=== PATIENT | male | born 1945 | race Caucasian/White ===

== ENCOUNTER 2023-07-29 18:05 | Emergency (ER) | payer MEDICARE, OTHER ==
[~2023-07-29] VITALS: Ht 172.7 cm; Wt 95.3 kg
[~2023-07-29 18:05] MED LIST: ALLOPURINOL; DIGOXIN; HCTZ; METOPROLOL; WARF1TAB2
[2023-07-29 18:38] LABS: BASOPHILS # (AUTO) 0.2 K/UL (0.0-0.2); BASOPHILS % (AUTO) 3.5 % (0.0-2.0); EOSINOPHILS # (AUTO) 0.2 K/uL (0.0-0.7); EOSINOPHILS % (AUTO) 2.3 % (0.0-7.0); HEMOGLOBIN 13.2 g/dL (12.5-16.3); LYMPHOCYTES # (AUTO) 0.6 K/uL (0.8-4.8); LYMPHOCYTES % (AUTO) 9.2 % (20.5-51.5); MEAN CORPUSCULAR HEMOGLOBIN 28.3 uug (23.8-33.4); MEAN CORPUSCULAR HGB CONC 31 g/dL (32.5-36.3); MEAN CORPUSCULAR VOLUME 90.3 fL (73.0-96.2); MONOCYTES # (AUTO) 0.6 K/uL (0.1-1.30); MONOCYTES % (AUTO) 8.6 % (0.0-11.0); NEUTROPHILS # (AUTO) 5.4 K/uL (1.8-8.9); NEUTROPHILS % (AUTO) 76.4 % (38.5-71.5); PLATELET COUNT (AUTO) 101 K/uL (152-348); RED BLOOD CELL COUNT(AUTO) 4.66 MIL/uL (4.06-5.63); RED CELL DISTRIBUTION WIDTH 18.1 % (12.1-16.2)
[2023-07-29 18:40] LABS: DIFFERENTIAL COMMENT 1
[2023-07-29 19:01] LABS: ALANINE AMINOTRANSFERASE 15 U/L (16-63); ALBUMIN 3.2 g/dL (3.4-5.0); ALKALINE PHOSPHATASE 99 U/L (50-136); ASPARTATE AMINOTRANSFERASE 11 U/L (15-37); BILIRUBIN,DIRECT 0.3 mg/dL (0.0-0.2); BILIRUBIN,TOTAL 0.7 mg/dL (0.2-1.0); CALCIUM 10.1 mg/dL (8.5-10.1); CARBON DIOXIDE 33 mmol/L (21-32); CHLORIDE 100 mmol/L (98-107); CREATININE 1.3 mg/dL (0.6-1.3); GLUCOSE 127 mg/dL (74-106); POTASSIUM 3.7 mmol/L (3.5-5.1); SODIUM SERUM 141 mmol/L (136-145); TOTAL PROTEIN, SERUM 7.9 g/dL (6.4-8.2); UREA NITROGEN, BLOOD 16 mg/dL (7-18)
[2023-07-29] MEDS ORDERED: CEFTRIAXONE 1 G in IV DEXTROSE 5% 50 ML IV ONE (22:00)
[2023-07-29] MEDS ORDERED: METRONIDAZOLE 500 MG/NS 100 ML PIGGYBACK IV ONE (22:00)
[2023-07-29] MEDS ORDERED: METRONIDAZOLE 500 MG/NS 100ML 100 ML IV ONE (22:12)
[2023-07-29] MEDS ORDERED: CEFTRIAXONE /D5W 50ML IVPB **ER PYXIS IV ONE (22:12)
[2023-07-29] MEDS ORDERED: ACETAMINOPHEN 325 MG TABLET PO ONE (23:00)
[2023-07-29 23:04] LABS: *BILIRUBIN,URIN NEGATIVE (NEGATIVE); *COLOR,URINE YELLOW (YELLOW); *KETONES,URINE NEGATIVE (NEGATIVE); *PROTEIN,URINE NEGATIVE (NEGATIVE); *UROBILINOGEN,URINE 0.2 E.U./dl (NORMAL); LEUKOCYTE ESTERASE ,URINE 1+ (NEGATIVE); NITRITE, URINE POSITIVE (NEGATIVE); UGLUCOSE NEGATIVE (NEGATIVE)
[2023-07-29 23:05] LABS: *BLOOD, URINE TRACE (NEGATIVE)
[2023-07-29 23:06] LABS: *CLARITY,URINE SLIGHTLY CLOUDY (CLEAR)
[2023-07-29] MEDS ORDERED: ACETAMINOPHEN ES 500 MG TABLET ONE (23:07)
[2023-07-29 23:35] LABS: BACTERIA,URINE FEW /HPF (NONE SEEN); SQUAMOUS EPITHELIAL CELL,UR NONE SEEN /HPF (NONE SEEN)
[2023-07-30 00:59] VITALS: O2SAT 98
== END 2023-07-30 01:15 | disposition short-term general hospital (02) ==
LOC: ER 18:05 → EDBD 18:05 → ER 07-30 01:15
DX: K57.32 Diverticulitis of large intestine without perforation or abscess without bleeding (principal); R07.89 Other chest pain; I48.91 Unspecified atrial fibrillation; E11.9 Type 2 diabetes mellitus without complications; K21.9 Gastro-esophageal reflux disease without esophagitis; E78.5 Hyperlipidemia, unspecified; M10.9 Gout, unspecified; Z95.0 Presence of cardiac pacemaker; Z86.73 Personal history of transient ischemic attack (TIA), and cerebral infarction without residual deficits; Z20.822 Contact with and (suspected) exposure to COVID-19
CPT/HCPCS: 99285; 74176; 96365; 71045; 96367; 87426; 80076; 80048; 81001; 85025; 84145; 85730; 87040 ×3; 84484; 36415; 93005; 83605; J0696; J3490; A4663; A9150; C1758

== ENCOUNTER 2024-08-17 14:50 | Emergency (ER) | payer OTHER, MEDICAID ==
[~2024-08-17] VITALS: Ht 172.7 cm; Wt 78.5 kg
[2024-08-17 15:40] LABS: BASOPHILS # (AUTO) 0.1 K/UL (0.0-0.2); BASOPHILS % (AUTO) 1.1 % (0.0-2.0); EOSINOPHILS # (AUTO) 0.1 K/uL (0.0-0.7); EOSINOPHILS % (AUTO) 1.7 % (0.0-7.0); HEMATOCRIT 31.8 % (36.7-47.1); HEMOGLOBIN 9.7 g/dL (12.5-16.3); LYMPHOCYTES % (AUTO) 14.6 % (20.5-51.5); MEAN CORPUSCULAR HEMOGLOBIN 25.1 uug (23.8-33.4); MEAN CORPUSCULAR HGB CONC 31 g/dL (32.5-36.3); MONOCYTES # (AUTO) 0.6 K/uL (0.1-1.30); MONOCYTES % (AUTO) 8.4 % (0.0-11.0); NEUTROPHILS % (AUTO) 74.2 % (38.5-71.5); PLATELET COUNT (AUTO) 159 K/uL (152-348); RED BLOOD CELL COUNT(AUTO) 3.87 MIL/uL (4.06-5.63); RED CELL DISTRIBUTION WIDTH 17.3 % (12.1-16.2); WHITE BLOOD COUNT (AUTO) 6.8 K/uL (3.6-10.2)
[2024-08-17 15:43] LABS: DIFFERENTIAL COMMENT 1
[2024-08-17 15:46] LABS: CALCIUM 8.8 mg/dL (8.5-10.1); CARBON DIOXIDE 32 mmol/L (21-32); CHLORIDE 102 mmol/L (98-107); CREATININE 1.1 mg/dL (0.6-1.3); GLUCOSE 104 mg/dL (74-106); POTASSIUM 3.8 mmol/L (3.5-5.1); SODIUM SERUM 140 mmol/L (136-145); UREA NITROGEN, BLOOD 18 mg/dL (7-18)
[2024-08-17 15:52] LABS: ALANINE AMINOTRANSFERASE 12 U/L (16-63); ALBUMIN 2.5 g/dL (3.4-5.0); ALKALINE PHOSPHATASE 107 U/L (50-136); ASPARTATE AMINOTRANSFERASE 11 U/L (15-37); BILIRUBIN,DIRECT 0.2 mg/dL (0.0-0.2); BILIRUBIN,TOTAL 0.6 mg/dL (0.2-1.0); TOTAL PROTEIN, SERUM 6.8 g/dL (6.4-8.2)
[2024-08-17 17:01] LABS: IRON, SERUM 15 ug/dL (50-175)
[2024-08-17] MEDS ORDERED: DIPH1TAB PO (18:00)
[2024-08-17] MEDS ORDERED: FERR325T23 PO (18:00)
[2024-08-17 20:34] VITALS: BP 132/63; O2SAT 98
[2024-08-18] MEDS ORDERED: METO25TA6 PO (07:41)
[2024-08-18] MEDS ORDERED: FAMO20TA8 PO (07:41)
[2024-08-18] MEDS ORDERED: DOCU100C36 PO (07:41)
[2024-08-18] MEDS ORDERED: COLC0.6T67 PO (07:41)
[2024-08-18] MEDS ORDERED: CHOL10005 PO (07:41)
[2024-08-18] MEDS ORDERED: CALC-343 PO (07:41)
[2024-08-18] MEDS ORDERED: MIRT-73 PO (07:41)
[2024-08-18] MEDS ORDERED: ATOR80TA PO (07:41)
[2024-08-18] MEDS ORDERED: ASPI81TA31 PO (07:41)
[2024-08-18] MEDS ORDERED: DABI150C PO (07:41)
[2024-08-18] MEDS ORDERED: MELA5TAB21 PO (07:41)
[2024-08-18] MEDS ORDERED: ALLO300T2 PO (07:41)
[2024-08-18] MEDS ORDERED: PREG75CA PO (07:41)
[2024-08-18] MEDS ORDERED: ACET-73 PO (07:41)
[2024-08-18] MEDS ORDERED: MAGN250T10 PO (07:41)
[2024-08-18] MEDS ORDERED: CETI10CA8 PO (07:41)
[2024-08-18] MEDS ORDERED: FLUO20CA42 PO (07:41)
[2024-08-18] MEDS ORDERED: FURO40TA5 PO (07:41)
[2024-08-18] MEDS ORDERED: ONDA4TAB5 PO (10:22)
== END 2024-08-17 20:35 | disposition home or self-care (01) ==
LOC: ER 14:50
DX: R10.32 Left lower quadrant pain (principal); D50.9 Iron deficiency anemia, unspecified; R19.7 Diarrhea, unspecified; Z86.73 Personal history of transient ischemic attack (TIA), and cerebral infarction without residual deficits; K21.9 Gastro-esophageal reflux disease without esophagitis; E11.9 Type 2 diabetes mellitus without complications; E03.9 Hypothyroidism, unspecified; Z79.899 Other long term (current) drug therapy
CPT/HCPCS: 36415; 83550; 85025; A4606; A4663

== ENCOUNTER 2024-08-18 07:00 | Emergency (ER) | payer OTHER, MEDICAID ==
[~2024-08-18] VITALS: Ht 167.6 cm; Wt 74.8 kg
[~2024-08-18 07:00] MED LIST changes: +DIPH1TAB PO; +FERR325T23 PO
[2024-08-18] MEDS ORDERED: ACET-73 PO (07:41)
[2024-08-18] MEDS ORDERED: CHOL10005 PO (07:41)
[2024-08-18] MEDS ORDERED: CETI10CA8 PO (07:41)
[2024-08-18] MEDS ORDERED: ASPI81TA31 PO (07:41)
[2024-08-18] MEDS ORDERED: DABI150C PO (07:41)
[2024-08-18] MEDS ORDERED: ALLO300T2 PO (07:41)
[2024-08-18] MEDS ORDERED: MIRT-73 PO (07:41)
[2024-08-18] MEDS ORDERED: DOCU100C36 PO (07:41)
[2024-08-18] MEDS ORDERED: FLUO20CA42 PO (07:41)
[2024-08-18] MEDS ORDERED: MELA5TAB21 PO (07:41)
[2024-08-18] MEDS ORDERED: FAMO20TA8 PO (07:41)
[2024-08-18] MEDS ORDERED: METO25TA6 PO (07:41)
[2024-08-18] MEDS ORDERED: COLC0.6T67 PO (07:41)
[2024-08-18] MEDS ORDERED: MAGN250T10 PO (07:41)
[2024-08-18] MEDS ORDERED: ATOR80TA PO (07:41)
[2024-08-18] MEDS ORDERED: FURO40TA5 PO (07:41)
[2024-08-18] MEDS ORDERED: CALC-343 PO (07:41)
[2024-08-18] MEDS ORDERED: PREG75CA PO (07:41)
[2024-08-18 08:03] LABS: BASOPHILS # (AUTO) 0.1 K/UL (0.0-0.2); DIFFERENTIAL COMMENT 0; EOSINOPHILS # (AUTO) 0.2 K/uL (0.0-0.7); EOSINOPHILS % (AUTO) 2.3 % (0.0-7.0); HEMATOCRIT 33.4 % (36.7-47.1); HEMOGLOBIN 10.3 g/dL (12.5-16.3); LYMPHOCYTES # (AUTO) 0.8 K/uL (0.8-4.8); LYMPHOCYTES % (AUTO) 10.5 % (20.5-51.5); MEAN CORPUSCULAR HEMOGLOBIN 25.4 uug (23.8-33.4); MEAN CORPUSCULAR HGB CONC 31 g/dL (32.5-36.3); MONOCYTES # (AUTO) 0.6 K/uL (0.1-1.30); MONOCYTES % (AUTO) 7.8 % (0.0-11.0); NEUTROPHILS # (AUTO) 5.6 K/uL (1.8-8.9); NEUTROPHILS % (AUTO) 77.4 % (38.5-71.5); PLATELET COUNT (AUTO) 168 K/uL (152-348); RED BLOOD CELL COUNT(AUTO) 4.07 MIL/uL (4.06-5.63); RED CELL DISTRIBUTION WIDTH 17.4 % (12.1-16.2); WHITE BLOOD COUNT (AUTO) 7.3 K/uL (3.6-10.2)
[2024-08-18] MEDS ORDERED: ONDANSETRON 4 MG/2 ML VIAL ONE (08:08)
[2024-08-18] MEDS ORDERED: ACETAMINOPHEN 500 MG TABLET ONE (08:08)
[2024-08-18 08:11] LABS: CALCIUM 9.2 mg/dL (8.5-10.1); CARBON DIOXIDE 33 mmol/L (21-32); CHLORIDE 103 mmol/L (98-107); CREATININE 1.1 mg/dL (0.6-1.3); GLUCOSE 97 mg/dL (74-106); POTASSIUM 4.5 mmol/L (3.5-5.1); SODIUM SERUM 140 mmol/L (136-145); UREA NITROGEN, BLOOD 18 mg/dL (7-18)
[2024-08-18] MEDS ORDERED: SWABABLE VALVE TRANSFER SET EA MC ONE (08:14)
[2024-08-18] MEDS ORDERED: IOHEXOL 300MG/ML 100 ML INFUS..BTL ONE (08:14)
[2024-08-18] MEDS ORDERED: IV NORMAL SALINE 250 ML IV ONE (08:14)
[2024-08-18] MEDS: ONDANSETRON 4 MG/2 ML VIAL IV ONE (08:16)
[2024-08-18] MEDS: IV NORMAL SALINE 500 ML BAG IV ONE (08:16)
[2024-08-18] MEDS: ACETAMINOPHEN 500 MG TABLET PO ONE (08:19)
[2024-08-18 08:30] LABS: ALANINE AMINOTRANSFERASE 9 U/L (16-63); ALBUMIN 2.7 g/dL (3.4-5.0); ALKALINE PHOSPHATASE 113 U/L (50-136); ASPARTATE AMINOTRANSFERASE 11 U/L (15-37); BILIRUBIN,DIRECT 0.2 mg/dL (0.0-0.2); BILIRUBIN,TOTAL 0.4 mg/dL (0.2-1.0); LIPASE 45 U/L (16-77); TOTAL PROTEIN, SERUM 7.7 g/dL (6.4-8.2)
[2024-08-18 08:34] LABS: *BILIRUBIN,URIN NEGATIVE (NEGATIVE); *BLOOD, URINE NEGATIVE (NEGATIVE); *CLARITY,URINE CLEAR (CLEAR); *COLOR,URINE YELLOW (YELLOW); *KETONES,URINE TRACE (NEGATIVE); *PROTEIN,URINE NEGATIVE (NEGATIVE); *UROBILINOGEN,URINE 0.2 E.U./dl (NORMAL); LEUKOCYTE ESTERASE ,URINE NEGATIVE (NEGATIVE); NITRITE, URINE NEGATIVE (NEGATIVE); UGLUCOSE NEGATIVE (NEGATIVE)
[2024-08-18] MEDS ORDERED: ONDA4TAB5 PO (10:22)
[2024-08-18 12:54] VITALS: BP 120/72; O2SAT 97
== END 2024-08-18 12:00 ==
LOC: ER 07:05
DX: R19.7 Diarrhea, unspecified (principal); R11.0 Nausea; R10.32 Left lower quadrant pain; Z86.73 Personal history of transient ischemic attack (TIA), and cerebral infarction without residual deficits; E78.5 Hyperlipidemia, unspecified; I25.10 Atherosclerotic heart disease of native coronary artery without angina pectoris; I11.0 Hypertensive heart disease with heart failure; I50.9 Heart failure, unspecified; I48.91 Unspecified atrial fibrillation; K21.9 Gastro-esophageal reflux disease without esophagitis; E11.9 Type 2 diabetes mellitus without complications; Z79.82 Long term (current) use of aspirin; Z79.899 Other long term (current) drug therapy
CPT/HCPCS: 99285; 74177; 96374; 71045; 96361; 80076; 80048; 81003; 83690; 85025; 36415; 93005; J2405; Q9967; J7040; A4606; A4663; A9150